=== PATIENT | male | born 1980 ===

== ENCOUNTER → 2016-10-05 | Outpatient (CLI) | payer OTHER ==
[2016-10-05 17:20] LABS: BASO % 0.5 %; BASO ABS # 0.04 K/uL (0-0.2); EOS % 1.9 %; HEMATOCRIT 40.8 % (42-52); IG% 0.1 %; LYMPH % 27.2 %; MEAN CELL VOLUME 81.6 fL (80-100); MEAN CORPUSCULAR HEMOGLOBIN 26.8 pg (25-34); MEAN PLATELET VOLUME 10.9 fL (7.4-10.4); MONO % 8.8 %; NEUT % 61.5 %; PLATELET COUNT 188 K/uL (130-400); WHITE BLOOD COUNT 7.36 K/uL (4.8-10.8)
[2016-10-05 17:23] LABS: COMPLETE YES; MEAN CORPUSCULAR HGB CONC 32.8 g/dl (32-36)
== END | disposition home or self-care (01) ==
LOC: C.LABSPEC 15:49
DX: R10.9 Unspecified abdominal pain (principal)